=== PATIENT | male | born 1945 ===

== ENCOUNTER 2020-01-12 09:48 | Outpatient (REF) | payer MEDICARE, OTHER, SELFPAY ==
[2020-01-12 11:42] LABS: Hematocrit 43.4 % (42-52); Hemoglobin 14.3 g/dl (14.0-18.0)
[2020-01-12 11:58] LABS: Alanine Aminotransferase 14 U/L (0-40); Albumin Level 4.2 g/dL (3.5-5.0); Alkaline Phosphatase 62 U/L (39-117); Anion Gap 13 (12-20); Aspartate Amino Transferase 14 U/L (5-37); Bilirubin Total 0.4 mg/dL (0.0-1.0); Blood Urea Nitrogen 16 mg/dL (9-16); Calcium 8.7 mg/dL (8.4-10.2); Carbon Dioxide 27 mmol/L (22-29); Chloride 105 mmol/L (96-108); Estimated Glomerular Filt Rate > 60; Glucose Random 103 mg/dL (60-115); Potassium 4.5 mmol/l (3.3-5.1); Sodium 140 mmol/L (135-145); Total Protein 6.9 g/dL (6.5-8.0)
== END 2020-01-12 09:49 | disposition home or self-care (01) ==
LOC: HO.HMGCLDS 09:48
PROVIDERS: PCP Internal Medicine; Visit Provider Internal Medicine
DX: I10 Essential (primary) hypertension (principal); J44.9 Chronic obstructive pulmonary disease, unspecified
CPT/HCPCS: 36415; 80053; 85014; 85018

== ENCOUNTER 2020-12-23 14:27 | Outpatient (REF) | payer MEDICARE, OTHER, SELFPAY ==
[2020-12-23 16:24] LABS: MANUAL DIFF FLAG NO
[2020-12-23 16:35] LABS: Basophils Percent Auto 0.3 % (0-2); Eosinophils Absolute Auto 0.1 X10*3/uL (0.0-0.4); Eosinophils Percent Auto 1.1 % (0-4); Hematocrit 39.5 % (42-52); Imm Gran Abs Auto 0.02 X10*3/uL (0.00-0.03); Imm Gran Pct Auto 0.3 % (0.0-0.4); Lymphocytes Absolute Auto 1.8 X10*3/uL (1.2-4.9); Lymphocytes Percent Auto 25.2 % (20-40); Mean Corpuscular HGB Conc 32.9 g/dl (31.0-36.0); Mean Corpuscular Hemoglobin 30.4 pg (27.0-33.0); Mean Corpuscular Volume 92.5 fL (80-98); Mean Platelet Volume 10.4 fL (9.4-12.4); Monocytes Absolute Auto 0.5 X10*3/uL (0.1-1.2); Monocytes Percent Auto 6.8 % (2-11); Neutrophils Absolute Auto 4.7 X10*3/uL (2.0-8.3); Neutrophils Percent Auto 66.3 % (45-73); Platelet Count 243 X10*3/uL (160-400); Red Blood Count 4.27 X10*6/uL (4.60-5.80); Red Cell Distribution Width 12.3 % (11.0-16.0); White Blood Count 7.1 X10*3/uL (4.8-10.8)
[2020-12-23 16:50] LABS: Alanine Aminotransferase 13 U/L (0-40); Albumin Level 4.2 g/dL (3.5-5.0); Alkaline Phosphatase 59 U/L (39-117); Anion Gap 12 (12-20); Aspartate Amino Transferase 15 U/L (5-37); Bilirubin Total 0.3 mg/dL (0.0-1.0); Blood Urea Nitrogen 18 mg/dL (9-16); Calcium 8.8 mg/dL (8.4-10.2); Carbon Dioxide 25 mmol/L (22-29); Chloride 108 mmol/L (96-108); Estimated Glomerular Filt Rate > 60; Glucose Random 150 mg/dL (60-115); Sodium 141 mmol/L (135-145); Total Protein 6.8 g/dL (6.5-8.0)
== END 2020-12-23 14:28 | disposition home or self-care (01) ==
LOC: HO.HMGCLDS 14:27
PROVIDERS: PCP Internal Medicine; Visit Provider Internal Medicine
DX: I10 Essential (primary) hypertension (principal); J45.909 Unspecified asthma, uncomplicated
CPT/HCPCS: 36415; 80053; 85025

== ENCOUNTER 2021-07-29 10:23 | Outpatient (REF) | payer MEDICARE, OTHER, SELFPAY ==
[2021-07-29 14:26] LABS: Alanine Aminotransferase 18 U/L (0-40); Albumin Level 4.2 g/dL (3.5-5.0); Alkaline Phosphatase 65 U/L (39-117); Anion Gap 14 (12-20); Aspartate Amino Transferase 15 U/L (5-37); Bilirubin Total 0.2 mg/dL (0.0-1.0); Blood Urea Nitrogen 22 mg/dL (9-16); Calcium 9.6 mg/dL (8.4-10.2); Carbon Dioxide 27 mmol/L (22-29); Chloride 104 mmol/L (96-108); Estimated Glomerular Filt Rate > 60; Glucose Random 101 mg/dL (60-115); Potassium 4.7 mmol/L (3.3-5.1); Sodium 140 mmol/L (135-145); Total Protein 7.1 g/dL (6.5-8.0)
== END 2021-07-29 10:24 | disposition home or self-care (01) ==
LOC: HO.HMGCLDS 10:23
PROVIDERS: PCP Internal Medicine; Visit Provider Internal Medicine
DX: I10 Essential (primary) hypertension (principal)
CPT/HCPCS: 36415; 80053

== ENCOUNTER 2022-04-09 14:44 | Outpatient (REF) | payer MEDICARE, OTHER, SELFPAY ==
[2022-04-09 16:38] LABS: MANUAL DIFF FLAG NO
[2022-04-09 17:01] LABS: Basophils Percent Auto 0.3 % (0-2); Eosinophils Absolute Auto 0.2 X10*3/uL (0.0-0.4); Eosinophils Percent Auto 2.7 % (0-4); Hemoglobin 13.7 g/dl (14.0-18.0); Imm Gran Abs Auto 0.01 X10*3/uL (0.00-0.03); Imm Gran Pct Auto 0.1 % (0.0-0.4); Lymphocytes Absolute Auto 2.3 X10*3/uL (1.2-4.9); Lymphocytes Percent Auto 32.8 % (20-40); Mean Corpuscular HGB Conc 32.6 g/dl (31.0-36.0); Mean Corpuscular Hemoglobin 29.8 pg (27.0-33.0); Mean Corpuscular Volume 91.5 fL (80.0-98.0); Monocytes Absolute Auto 0.6 X10*3/uL (0.1-1.2); Neutrophils Absolute Auto 3.9 x10*3/uL (2.0-8.3); Neutrophils Percent Auto 56.1 % (45-73); Platelet Count 243 X10*3/uL (160-400); Red Blood Count 4.59 X10*6/uL (4.60-5.80); Red Cell Distribution Width 12.5 % (11.0-16.0)
[2022-04-09 17:13] LABS: Alanine Aminotransferase 13 U/L (0-40); Albumin Level 4.2 g/dL (3.5-5.0); Alkaline Phosphatase 69 U/L (39-117); Anion Gap 12 (12-20); Aspartate Amino Transferase 14 U/L (5-37); Bilirubin Total 0.3 mg/dL (0.0-1.0); Blood Urea Nitrogen 18 mg/dL (9-16); Calcium 9.4 mg/dL (8.4-10.2); Carbon Dioxide 29 mmol/L (22-29); Chloride 103 mmol/L (96-108); Cholesterol 171 mg/dL; Estimated Glomerular Filt Rate > 60; Glucose Fasting 107 mg/dL (60-99); Glucose Random 107 mg/dL (60-115); HDL Cholesterol 73 mg/dL; LDL Cholesterol Calculated 79 mg/dl; Potassium 4.2 mmol/L (3.3-5.1); Sodium 140 mmol/L (135-145); Triglycerides 95 mg/dL
== END 2022-04-09 14:45 | disposition home or self-care (01) ==
LOC: HO.HMGCLDS 14:44
PROVIDERS: Visit Provider Internal Medicine
DX: I10 Essential (primary) hypertension (principal); J45.40 Moderate persistent asthma, uncomplicated
CPT/HCPCS: 36415; 80053; 80061; 85025

== ENCOUNTER 2022-11-18 15:15 | Outpatient (AMB) | payer MEDICARE, OTHER, SELFPAY ==
--- NOTE | 2022-11-18 15:16 | A.OFFPC_ITS ---
Vital Signs 11/18/22 15:18 Height 5 ft 6 in Weight 152 lb BMI 24.5 BP 126/76 Blood Pressure Location Rt brachial Position Sitting Pulse 72 Pulse Source Pulse Oximeter Pulse Oximetry (%) 98 Oxygen Delivery Method Room Air Intake Visit Reasons: Follow up Allergies No Known Allergies Allergy (Verified 11/18/22 15:18) Medication List - Last Reconciled 11/18/22 by Arianna Post MD fluticasone propion-salmeterol 250-50 mcg/dose (Advair Diskus) 1 inh inhalation BID 90 days lisinopril 30 mg PO DAILY 90 days Tobacco use date assessed: 11/18/22 Fall risk assessment: No Falls in past year Last assessed Fall Risk: 11/18/22 HPI Follow up HPI Details Patient is 76-year-old male came in today for his follow-up appointment last time he was seen January of last year and then he did not come in for follow-up due to 1 reason or another. Patient continued to drink 4-5 beers every day and tells me that he has been drinking since he was 13 years old We talked about toxic effect of alcohol on the liver I would recommend for him to at least cut down. Due for labs order placed Last time he had labs his fasting sugar was slightly off and his hemoglobin was 13.7 He is complaining of easy bruising today. Hypertension:? Blood pressure is stable patient is taking lisinopril 30 mg daily .? Patient is tolerating medication. Asthma stable with Advair as a maintenance inhaler and albuterol only as needed. Follow-up 3 months [facility] Medical History Asthma Hypertension, essential Surgical History History of colonoscopy Family History Father HTN (hypertension) Cardiac disease Mother No problems noted. Brother No problems noted. Brother No problems noted. Brother No problems noted. Brother No problems noted. Sister No problems noted. Sister No problems noted. Sister No problems noted. Son No problems noted. Social History Housing: House Alcohol intake: current Alcohol intake frequency: 0-2 drinks per day Patient Tobacco Use Status: Never used Tobacco Tobacco use type: Cigarette e-Cigarette/Vaping Use: Never Used Current occupational status: retired Cognitive needs: No Hearing needs: No Vision needs: No Questionnaire PHQ-9 Over the last 2 weeks, how often have you been bothered by any of the following problems? 1. Little interest or pleasure in doing things: not at all 2. Feeling down, depressed, or hopeless: not at all 3. Trouble falling or staying asleep, or sleeping too much: not at all 4. Feeling tired or having little energy: not at all 5. Poor appetite or overeating: not at all 6. Feeling bad about yourself - or that you are a failure or have let yourself or your family down: not at all 7. Trouble concentrating on things, such as reading the newspaper or watching television: not at all 8. Moving or speaking so slowly that other people could have noticed. Or the opposite - being so fidgety or restless that you have been moving around a lot more than usual: not at all 9. Thoughts that you would be better off or of hurting yourself in some way: not at all Total score: 0 Depression Screening Interpretation: Negative 46202 - PHQ-9 Billing: Yes Source: Developed by Drs. Alonzo Cerna, Emerald German, Ayush Mathews and colleagues, with an educational linda from [employer]. AUDIT C Alcohol Use Questionnaire (AUDIT-C) 1. How often do you have a drink containing alcohol?: 4 or more times a week 2. How many drinks containing alcohol do you have on a typical day when you are drinking?: 3 or 4 3. How often do you have six or more drinks on one occasion?: Never Total Score: 5 Score Reviewed/Action Taken: No Review of Systems Const Denies chills and Denies fever(s) ENT Denies epistaxis and Denies nasal discharge Card Denies chest pain Resp Denies chest congestion, Denies cough and Denies hemoptysis GI Denies diarrhea and Denies nausea Skin/Breast Denies rash Neuro Reports no additional complaints Psych Reports no additional complaints Endo Reports no additional complaints Physical exam (Primary Care) Vital Signs: Last Vital Signs Pulse 72 11/18/22 15:18 BP 126/76 11/18/22 15:18 Pulse Ox 98 11/18/22 15:18 Oxygen Delivery Method Room Air 11/18/22 15:18 BMI result Body Mass Index 24.5 Tobacco/Smoking Status: Tobacco use Status Tobacco use date assessed 11/18/22 11/18/22 15:20 Patient Tobacco Use Status Never used Tobacco 11/18/22 15:17 Tobacco use type Cigarette 11/18/22 15:17 e-Cigarette/Vaping Use Never Used 11/18/22 15:17 Depression Screening Interpretation: Negative Const General: cooperative, comfortable and no acute distress Orientation/consciousness: patient oriented x3 HENMT Head: Yes normocephalic Eyes General: appearance normal, both eyes and all related structures Neck Neck: Yes supple Resp Effort & Inspection: normal respiratory effort, no cough and no stridor Cardio Rhythm: regular rhythm Heart sounds: S1 normal heart sound present and S2 normal heart sound present Skin Other: 2 in x 2 in ecchymotic patch right forearm external surface General skin exam: turgor normal Neuro General: patient oriented x3, tone normal and moves all extremities Extrem Right lower extremity: no edema Left lower extremity: no edema Assessment and Plan Assessment & Plan (1) Hypertension, essential: Code(s): I10 - Essential (primary) hypertension (2) Asthma, moderate persistent: Code(s): J45.40 - Moderate persistent asthma, uncomplicated (3) Impaired fasting blood sugar: Code(s): R73.01 - Impaired fasting glucose (4) Anemia: Code(s): D64.9 - Anemia, unspecified (5) Alcoholism: Comment: CONSEQUENCES OF DRINKING PROBLEMS There are a number of serious consequences of drinking alcohol excessively -------Excessive alcohol consumption is a leading preventable cause of in the [place]. --------Drinking alcohol increases the risk of traffic accidents, suicide, drowning, and other serious injuries. -------Alcohol use continues to be the leading cause of injuries treated in trauma centers and emergency departments . --------Alcohol-related liver disease may lead to end-stage liver disease (cirrhosis) and . --------Alcohol increases the risk of certain cancers of the mouth, esophagus, throat, liver, and breast. Code(s): F10.20 - Alcohol dependence, uncomplicated (6) Easy bruising: Code(s): R23.3 - Spontaneous ecchymoses (7) Ecchymosis of forearm: Code(s): R58 - Hemorrhage, not elsewhere classified Plan Patient is 76-year-old male came in today for his follow-up appointment last time he was seen January of last year and then he did not come in for follow-up due to 1 reason or another. Patient continued to drink 4-5 beers every day and tells me that he has been drinking since he was 13 years old We talked about toxic effect of alcohol on the liver I would recommend for him to at least cut down. Due for labs order placed Last time he had labs his fasting sugar was slightly off and his hemoglobin was 13.7 He is complaining of easy bruising today. Hypertension:? Blood pressure is stable patient is taking lisinopril 30 mg daily.? Patient is tolerating medication. Asthma stable with Advair as a maintenance inhaler and albuterol only as needed. Follow-up 3 months Orders: Orders Comprehensive [place]. Panel Fast Today D64.9 - Anemia, unspecified, I10 - Essential (primary) hypertension, J45.40 - Moderate persistent asthma, uncomplicated, R73.01 - Impaired fasting glucose Hemoglobin A1c Today D64.9 - Anemia, unspecified, I10 - Essential (primary) hypertension, J45.40 - Moderate persistent asthma, uncomplicated, R73.01 - Impaired fasting glucose Lipid Panel Today D64.9 - Anemia, unspecified, I10 - Essential (primary) hypertension, J45.40 - Moderate persistent asthma, uncomplicated, R73.01 - Impaired fasting glucose Complete Blood Count Auto Diff Today D64.9 - Anemia, unspecified, I10 - Essential (primary) hypertension, J45.40 - Moderate persistent asthma, uncomplicated, R73.01 - Impaired fasting glucose Medications: Refilled fluticasone propion-salmeterol 250-50 mcg/dose (Advair Diskus) 1 inh inhalation BID 3 multiple units 0RF 90 days lisinopril 30 mg PO DAILY 90 tabs 0RF 90 days albuterol sulfate 90 mcg/actuation (ProAir HFA) 2 puffs inhalation Q4-6H PRN 8.5 grams 5RF bronchospasm 30 days Coding Level of Care Code Est Pt Level 4 (18525) Diagnoses Hypertension, essential I10 Asthma, moderate persistent J45.40 Impaired fasting blood sugar R73.01 Anemia D64.9 Alcoholism F10.20 Easy bruising R23.3 Ecchymosis of forearm R58
[2022-11-18 15:18] VITALS: BP 126/76; PULSE 72; O2SAT 98; BMI 24.5
== END 2022-11-18 16:02 | disposition home or self-care (01) ==
PROVIDERS: PCP Internal Medicine; Visit Provider Internal Medicine
DX: I10 Essential (primary) hypertension (principal); J45.40 Moderate persistent asthma, uncomplicated; F10.20 Alcohol dependence, uncomplicated; R73.01 Impaired fasting glucose; D64.9 Anemia, unspecified; R23.3 Spontaneous ecchymoses; R58 Hemorrhage, not elsewhere classified
CPT/HCPCS: 99214

== ENCOUNTER 2022-11-19 06:19 | Outpatient (REF) | payer MEDICARE, OTHER, SELFPAY ==
[2022-11-19 11:40] LABS: MANUAL DIFF FLAG NO
[2022-11-19 11:50] LABS: Basophils Percent Auto 0.3 % (0-2); Eosinophils Absolute Auto 0.4 X10*3/uL (0.0-0.4); Eosinophils Percent Auto 6.4 % (0-4); Hematocrit 42.7 % (42.0-52.0); Hemoglobin 13.6 g/dl (14.0-18.0); Imm Gran Abs Auto 0.02 X10*3/uL (0.00-0.03); Imm Gran Pct Auto 0.3 % (0.0-0.4); Lymphocytes Absolute Auto 2.5 X10*3/uL (1.2-4.9); Lymphocytes Percent Auto 36.2 % (20-40); Mean Corpuscular HGB Conc 31.9 g/dl (31.0-36.0); Mean Corpuscular Hemoglobin 30.7 pg (27.0-33.0); Mean Corpuscular Volume 96.4 fL (80.0-98.0); Mean Platelet Volume 10.2 fL (9.4-12.4); Monocytes Absolute Auto 0.7 X10*3/uL (0.1-1.2); Monocytes Percent Auto 9.8 % (2-11); Neutrophils Absolute Auto 3.2 x10*3/uL (2.0-8.3); Platelet Count 220 X10*3/uL (160-400); Red Blood Count 4.43 X10*6/uL (4.60-5.80); White Blood Count 6.9 X10*3/uL (4.8-10.8)
[2022-11-19 12:03] LABS: Estimated Average Glucose 108 mg/dL; Hemoglobin A1c % 5.4 % (<6.0)
[2022-11-19 12:32] LABS: Alanine Aminotransferase 16 U/L (0-40); Albumin Level 4.1 g/dL (3.5-5.0); Alkaline Phosphatase 52 U/L (39-117); Anion Gap 11 (12-20); Aspartate Amino Transferase 18 U/L (5-37); Bilirubin Total 0.6 mg/dL (0.0-1.0); Blood Urea Nitrogen 21 mg/dL (9-16); Calcium 9.4 mg/dL (8.4-10.2); Carbon Dioxide 26 mmol/L (22-29); Chloride 106 mmol/L (96-108); Cholesterol 180 mg/dL (<200); Estimated Glomerular Filt Rate > 60; Glucose Fasting 109 mg/dL (60-99); HDL Cholesterol 83 mg/dL (>40); LDL Cholesterol Calculated 82 mg/dL (<100); Potassium 4.3 mmol/L (3.3-5.1); Sodium 139 mmol/L (135-145); Total Protein 7.1 g/dL (6.5-8.0); Triglycerides 76 mg/dL (<150)
== END 2022-11-19 06:20 | disposition home or self-care (01) ==
LOC: HO.HMGCLDS 06:19
PROVIDERS: PCP Internal Medicine; Visit Provider Internal Medicine
DX: I10 Essential (primary) hypertension (principal); J45.40 Moderate persistent asthma, uncomplicated; R73.01 Impaired fasting glucose; D64.9 Anemia, unspecified
CPT/HCPCS: 36415; 80053; 80061; 83036; 85025

== ENCOUNTER 2023-02-23 15:02 | Outpatient (AMB) | payer MEDICARE, OTHER, SELFPAY ==
[2023-02-23 15:09] VITALS: BP 126/72; PULSE 76; O2SAT 97; BMI 25.6
--- NOTE | 2023-02-23 15:09 | MHC.PC.OV ---
Vital Signs 02/23/23 15:09 Height 5 ft 6 in Weight 158 lb 6 oz BMI 25.6 BP 126/72 Blood Pressure Location Rt brachial Position Sitting Pulse 76 Pulse Source Pulse Oximeter Pulse Oximetry (%) 97 Oxygen Delivery Method Room Air Intake Visit Reasons: 3 month fu Allergies No Known Allergies Allergy (Verified 02/23/23 15:11) Medication List - Last Reconciled 02/23/23 by Arianna Post MD albuterol sulfate 90 mcg/actuation (ProAir HFA) 2 puffs inhalation Q4-6H PRN 30 days fluticasone propion-salmeterol 250-50 mcg/dose (Advair Diskus) 1 inh inhalation BID 90 days lisinopril 30 mg PO DAILY 90 days Tobacco use date assessed: 02/23/23 Fall risk assessment: No Falls in past year Last assessed Fall Risk: 02/23/23 Dental Screening Dental Screen Date: 02/23/23 Did you have a dental visit in the last 12 months?: No Did you have a dental problem in the last 6 months where you did not have access to dental care?: No Was dental information given to patient?: No HPI 3 month fu HPI Details Patient is 77-year-old male came in today for his follow-up appointment Complaining of mild constipation, however he drinks coffee in the morning which helps Labs were done October of this year, reviewed again Patient have impaired fasting sugar, we will continue to monitor Patient continued to drink 4-5 beers every day and tells me that he has been drinking since he was 13 years old We talked about toxic effect of alcohol on the liver I would recommend for him to at least cut down. Due for labs order placed , to be done before next visit in 3 months Hypertension:? Blood pressure is stable patient is taking lisinopril 30 mg daily.? Patient is tolerating medication. Asthma stable with Advair as a maintenance inhaler and albuterol only as needed. Follow-up 3 months [facility] Medical History Asthma Hypertension, essential Surgical History History of colonoscopy Family History Father HTN (hypertension) Cardiac disease Mother No problems noted. Brother No problems noted. Brother No problems noted. Brother No problems noted. Brother No problems noted. Sister No problems noted. Sister No problems noted. Sister No problems noted. Son No problems noted. Social History Housing: House Alcohol intake: current Alcohol intake frequency: 0-2 drinks per day Patient Tobacco Use Status: Never used Tobacco Tobacco use type: Cigarette e-Cigarette/Vaping Use: Never Used service: No Current occupational status: retired Cognitive needs: No Hearing needs: No Vision needs: No Questionnaire AUDIT C Alcohol Use Questionnaire (AUDIT-C) 1. How often do you have a drink containing alcohol?: 2-3 times a week 2. How many drinks containing alcohol do you have on a typical day when you are drinking?: 3 or 4 3. How often do you have six or more drinks on one occasion?: Never Total Score: 4 Score Reviewed/Action Taken: Yes Review of Systems Const Denies chills and Denies fever(s) ENT Denies epistaxis and Denies nasal discharge Card Denies chest pain Resp Denies chest congestion, Denies cough and Denies hemoptysis GI Denies diarrhea and Denies nausea Skin/Breast Denies rash Neuro Reports no additional complaints Psych Reports no additional complaints Endo Reports no additional complaints Physical exam (Primary Care) Vital Signs: Last Vital Signs Pulse 76 02/23/23 15:09 BP 126/72 02/23/23 15:09 Pulse Ox 97 02/23/23 15:09 Oxygen Delivery Method Room Air 02/23/23 15:09 BMI result Body Mass Index 25.6 Tobacco/Smoking Status: Tobacco use Status Tobacco use date assessed 02/23/23 02/23/23 15:11 Patient Tobacco Use Status Never used Tobacco 02/23/23 15:11 Tobacco use type Cigarette 02/23/23 15:11 e-Cigarette/Vaping Use Never Used 02/23/23 15:11 Const General: cooperative, comfortable and no acute distress Orientation/consciousness: patient oriented x3 HENMT Head: Yes normocephalic Eyes General: appearance normal, both eyes and all related structures Neck Neck: Yes supple Resp Effort & Inspection: normal respiratory effort, no cough and no stridor Cardio Rhythm: regular rhythm Heart sounds: S1 normal heart sound present and S2 normal heart sound present Skin General skin exam: turgor normal Neuro General: patient oriented x3, tone normal and moves all extremities Extrem Right lower extremity: no edema Left lower extremity: no edema Assessment and Plan Assessment & Plan (1) Hypertension, essential: Code(s): I10 - Essential (primary) hypertension (2) Asthma, moderate persistent: Code(s): J45.40 - Moderate persistent asthma, uncomplicated Qualifiers: Asthma complication type: uncomplicated Qualified Code(s): J45.40 - Moderate persistent asthma, uncomplicated (3) Possible alcohol use disorder on screening for alcoholism: Code(s): Z13.39 - Encounter for screening examination for other mental health and behavioral disorders (4) Impaired fasting blood sugar: Code(s): R73.01 - Impaired fasting glucose (5) Alcoholism: Comment: CONSEQUENCES OF DRINKING PROBLEMS There are a number of serious consequences of drinking alcohol excessively -------Excessive alcohol consumption is a leading preventable cause of in the [place]. --------Drinking alcohol increases the risk of traffic accidents, suicide, drowning, and other serious injuries. -------Alcohol use continues to be the leading cause of injuries treated in trauma centers and emergency departments . --------Alcohol-related liver disease may lead to end-stage liver disease (cirrhosis) and . --------Alcohol increases the risk of certain cancers of the mouth, esophagus, throat, liver, and breast. Code(s): F10.20 - Alcohol dependence, uncomplicated (6) Constipation by delayed colonic transit: Code(s): K59.01 - Slow transit constipation Plan Patient is 77-year-old male came in today for his follow-up appointment Complaining of mild constipation, however he drinks coffee in the morning which helps Labs were done October of this year, reviewed again Patient have impaired fasting sugar, we will continue to monitor Patient continued to drink 4-5 beers every day and tells me that he has been drinking since he was 13 years old We talked about toxic effect of alcohol on the liver I would recommend for him to at least cut down. Due for labs order placed , to be done before next visit in 3 months Hypertension:? Blood pressure is stable patient is taking lisinopril 30 mg daily.? Patient is tolerating medication. Asthma stable with Advair as a maintenance inhaler and albuterol only as needed. Follow-up 3 months Orders: Orders Hemoglobin A1c 3 Months F10.20 - Alcohol dependence, uncomplicated, I10 - Essential (primary) hypertension, J45.40 - Moderate persistent asthma, uncomplicated, R73.01 - Impaired fasting glucose, Z13.39 - Encounter for screening examination for other mental health and behavioral disorders Complete Blood Count Auto Diff 3 Months F10.20 - Alcohol dependence, uncomplicated, I10 - Essential (primary) hypertension, J45.40 - Moderate persistent asthma, uncomplicated, R73.01 - Impaired fasting glucose, Z13.39 - Encounter for screening examination for other mental health and behavioral disorders Comprehensive [place]. Panel Fast 3 Months F10.20 - Alcohol dependence, uncomplicated, I10 - Essential (primary) hypertension, J45.40 - Moderate persistent asthma, uncomplicated, R73.01 - Impaired fasting glucose, Z13.39 - Encounter for screening examination for other mental health and behavioral disorders Lipid Panel 3 Months F10.20 - Alcohol dependence, uncomplicated, I10 - Essential (primary) hypertension, J45.40 - Moderate persistent asthma, uncomplicated, R73.01 - Impaired fasting glucose, Z13.39 - Encounter for screening examination for other mental health and behavioral disorders Medications: Refilled fluticasone propion-salmeterol 250-50 mcg/dose (Advair Diskus) 1 inh inhalation BID 3 multiple units 0RF 90 days lisinopril 30 mg PO DAILY 90 tabs 0RF 90 days albuterol sulfate 90 mcg/actuation (ProAir HFA) 2 puffs inhalation Q4-6H PRN 8.5 grams 5RF bronchospasm 30 days Coding Level of Care Code Est Pt Level 4 (16778) Diagnoses Hypertension, essential I10 Moderate persistent asthma without complication J45.40 Asthma complication type: uncomplicated Possible alcohol use disorder on screening for alcoholism Z13.39 Impaired fasting blood sugar R73.01 Alcoholism F10.20 Constipation by delayed colonic transit K59.01
== END 2023-02-23 16:56 | disposition home or self-care (01) ==
PROVIDERS: PCP Internal Medicine; Visit Provider Internal Medicine
DX: I10 Essential (primary) hypertension (principal); J45.40 Moderate persistent asthma, uncomplicated; Z13.39 Encounter for screening examination for other mental health and behavioral disorders; F10.20 Alcohol dependence, uncomplicated; R73.01 Impaired fasting glucose; K59.01 Slow transit constipation
CPT/HCPCS: 99214

== ENCOUNTER 2023-05-21 06:03 | Outpatient (REF) | payer MEDICARE, OTHER, SELFPAY ==
[2023-05-21 11:19] LABS: MANUAL DIFF FLAG NO
[2023-05-21 11:29] LABS: Basophils Percent Auto 0.5 % (0-2); Eosinophils Absolute Auto 0.3 X10*3/uL (0.0-0.4); Eosinophils Percent Auto 4.3 % (0-4); Hemoglobin 13.8 g/dl (14.0-18.0); Imm Gran Abs Auto 0.01 X10*3/uL (0.00-0.03); Imm Gran Pct Auto 0.2 % (0.0-0.4); Lymphocytes Percent Auto 31.6 % (20-40); Mean Corpuscular HGB Conc 32.9 g/dl (31.0-36.0); Mean Corpuscular Hemoglobin 30.5 pg (27.0-33.0); Mean Corpuscular Volume 92.9 fL (80.0-98.0); Mean Platelet Volume 10.1 fL (9.4-12.4); Monocytes Absolute Auto 0.6 X10*3/uL (0.1-1.2); Monocytes Percent Auto 9.8 % (2-11); Neutrophils Absolute Auto 3.5 x10*3/uL (2.0-8.3); Neutrophils Percent Auto 53.6 % (45-73); Platelet Count 234 X10*3/uL (160-400); Red Blood Count 4.52 X10*6/uL (4.60-5.80); White Blood Count 6.5 X10*3/uL (4.8-10.8)
[2023-05-21 11:37] LABS: Estimated Average Glucose 114 mg/dL; Hemoglobin A1c % 5.6 % (<6.0)
[2023-05-21 11:43] LABS: Alanine Aminotransferase 16 U/L (0-40); Albumin Level 4.1 g/dL (3.5-5.0); Alkaline Phosphatase 58 U/L (39-117); Anion Gap 11 (12-20); Aspartate Amino Transferase 17 U/L (5-37); Bilirubin Total 0.4 mg/dL (0.0-1.0); Blood Urea Nitrogen 16 mg/dL (9-16); Calcium 9.2 mg/dL (8.4-10.2); Carbon Dioxide 28 mmol/L (22-29); Chloride 107 mmol/L (96-108); Cholesterol 186 mg/dL (<200); Estimated Glomerular Filt Rate > 60; Glucose Fasting 108 mg/dL (60-99); HDL Cholesterol 79 mg/dL (>40); LDL Cholesterol Calculated 87 mg/dL (<100); Potassium 4.4 mmol/L (3.3-5.1); Sodium 142 mmol/L (135-145); Total Protein 7.2 g/dL (6.5-8.0); Triglycerides 103 mg/dL (<150)
== END 2023-05-21 06:04 | disposition home or self-care (01) ==
LOC: HO.HMGCLDS 06:03
PROVIDERS: PCP Internal Medicine; Visit Provider Internal Medicine
DX: I10 Essential (primary) hypertension (principal); J45.40 Moderate persistent asthma, uncomplicated; R73.01 Impaired fasting glucose; F10.20 Alcohol dependence, uncomplicated; Z13.39 Encounter for screening examination for other mental health and behavioral disorders
CPT/HCPCS: 36415; 80053; 80061; 83036; 85025

== ENCOUNTER 2023-06-02 14:51 | Outpatient (AMB) | payer MEDICARE, OTHER, SELFPAY ==
--- NOTE | 2023-06-02 14:55 | MHC.PC.OV ---
Vital Signs 06/02/23 14:56 Height 5 ft 6 in Weight 150 lb 4 oz BMI 24.2 BP 128/68 Blood Pressure Location Rt brachial Position Sitting Pulse 84 Pulse Source Pulse Oximeter Pulse Oximetry (%) 98 Oxygen Delivery Method Room Air Intake Visit Reasons: 6 month fu Allergies No Known Allergies Allergy (Verified 06/02/23 14:56) Medication List - Last Reconciled 06/02/23 by Arianna Post MD albuterol sulfate 90 mcg/actuation (ProAir HFA) 2 puffs inhalation Q4-6H PRN 30 days fluticasone propion-salmeterol 250-50 mcg/dose (Advair Diskus) 1 inh inhalation BID 90 days lisinopril 30 mg PO DAILY 90 days Tobacco use date assessed: 06/02/23 Fall risk assessment: No Falls in past year Last assessed Fall Risk: 06/02/23 Dental Screening Dental Screen Date: 06/02/23 Did you have a dental visit in the last 12 months?: No Did you have a dental problem in the last 6 months where you did not have access to dental care?: No Was dental information given to patient?: No HPI 6 month fu HPI Details Patient is 77-year-old male came in today for his follow-up appointment Patient is in his usual state of health offer no new complaints Labs done this month reviewed with the patient Patient have impaired fasting sugar, we will continue to monitor Patient continued to drink 4-5 beers every day and tells me that he has been drinking since he was 13 years old Once again patient was advised to stop or at least cut down Hypertension:? Blood pressure is stable patient is taking lisinopril 30 mg daily.? Patient is tolerating medication. Asthma stable with Advair as a maintenance inhaler and albuterol only as needed. Constipation stable Patient is hard of hearing, however he is not interested in getting his hearing tested, tells me that hearing it is not affordable for him Follow-up 3 months [facility] Medical History Asthma Hypertension, essential Surgical History History of colonoscopy Family History Father HTN (hypertension) Cardiac disease Mother No problems noted. Brother No problems noted. Brother No problems noted. Brother No problems noted. Brother No problems noted. Sister No problems noted. Sister No problems noted. Sister No problems noted. Son No problems noted. Social History Housing: House Alcohol intake: current Alcohol intake frequency: 0-2 drinks per day Patient Tobacco Use Status: Never used Tobacco Tobacco use type: Cigarette e-Cigarette/Vaping Use: Never Used service: No Current occupational status: retired Cognitive needs: No Hearing needs: No Vision needs: No Questionnaire AUDIT C Alcohol Use Questionnaire (AUDIT-C) 1. How often do you have a drink containing alcohol?: 2-3 times a week 2. How many drinks containing alcohol do you have on a typical day when you are drinking?: 3 or 4 3. How often do you have six or more drinks on one occasion?: Never Total Score: 4 Score Reviewed/Action Taken: Yes Review of Systems Const Denies chills and Denies fever(s) ENT Denies epistaxis and Denies nasal discharge Card Denies chest pain Resp Denies chest congestion, Denies cough and Denies hemoptysis GI Denies diarrhea and Denies nausea Skin/Breast Denies rash Neuro Reports no additional complaints Psych Reports no additional complaints Endo Reports no additional complaints Physical exam (Primary Care) Vital Signs: Last Vital Signs Pulse 84 06/02/23 14:56 BP 128/68 06/02/23 14:56 Pulse Ox 98 06/02/23 14:56 Oxygen Delivery Method Room Air 06/02/23 14:56 BMI result Body Mass Index 24.2 Tobacco/Smoking Status: Tobacco use Status Tobacco use date assessed 06/02/23 06/02/23 14:58 Patient Tobacco Use Status Never used Tobacco 06/02/23 14:58 Tobacco use type Cigarette 06/02/23 14:58 e-Cigarette/Vaping Use Never Used 06/02/23 14:58 Const General: cooperative, comfortable and no acute distress Orientation/consciousness: patient oriented x3 HENMT Head: Yes normocephalic Eyes General: appearance normal, both eyes and all related structures Neck Neck: Yes supple Resp Effort & Inspection: normal respiratory effort, no cough and no stridor Cardio Rhythm: regular rhythm Heart sounds: S1 normal heart sound present and S2 normal heart sound present Skin General skin exam: turgor normal Neuro General: patient oriented x3, tone normal and moves all extremities Extrem Right lower extremity: no edema Left lower extremity: no edema Assessment and Plan Assessment & Plan (1) Hypertension, essential: Code(s): I10 - Essential (primary) hypertension (2) Asthma, moderate persistent: Code(s): J45.40 - Moderate persistent asthma, uncomplicated Qualifiers: Asthma complication type: uncomplicated Qualified Code(s): J45.40 - Moderate persistent asthma, uncomplicated (3) Impaired fasting blood sugar: Code(s): R73.01 - Impaired fasting glucose (4) Alcoholism: Comment: CONSEQUENCES OF DRINKING PROBLEMS There are a number of serious consequences of drinking alcohol excessively -------Excessive alcohol consumption is a leading preventable cause of in the [place]. --------Drinking alcohol increases the risk of traffic accidents, suicide, drowning, and other serious injuries. -------Alcohol use continues to be the leading cause of injuries treated in trauma centers and emergency departments . --------Alcohol-related liver disease may lead to end-stage liver disease (cirrhosis) and . --------Alcohol increases the risk of certain cancers of the mouth, esophagus, throat, liver, and breast. Code(s): F10.20 - Alcohol dependence, uncomplicated (5) Constipation by delayed colonic transit: Code(s): K59.01 - Slow transit constipation Plan Patient is 77-year-old male came in today for his follow-up appointment Complaining of mild constipation, however he drinks coffee in the morning which helps Labs were done October of this year, reviewed again Patient have impaired fasting sugar, we will continue to monitor Patient continued to drink 4-5 beers every day and tells me that he has been drinking since he was 13 years old We talked about toxic effect of alcohol on the liver I would recommend for him to at least cut down. Due for labs order placed , to be done before next visit in 3 months Hypertension:? Blood pressure is stable patient is taking lisinopril 30 mg daily.? Patient is tolerating medication. Asthma stable with Advair as a maintenance inhaler and albuterol only as needed. Follow-up 3 months Orders: Orders Comprehensive [place]. Panel 3 Months I10 - Essential (primary) hypertension Coding Level of Care Code Est Pt Level 3 (39742) Diagnoses Hypertension, essential I10 Moderate persistent asthma without complication J45.40 Asthma complication type: uncomplicated Impaired fasting blood sugar R73.01 Alcoholism F10.20 Constipation by delayed colonic transit K59.01
[2023-06-02 14:56] VITALS: BP 128/68; PULSE 84; O2SAT 98; BMI 24.2
== END 2023-06-02 15:59 | disposition home or self-care (01) ==
PROVIDERS: PCP Internal Medicine; Visit Provider Internal Medicine
DX: I10 Essential (primary) hypertension (principal); J45.40 Moderate persistent asthma, uncomplicated; R73.01 Impaired fasting glucose; F10.20 Alcohol dependence, uncomplicated; K59.01 Slow transit constipation
CPT/HCPCS: 99213

== ENCOUNTER 2023-08-25 11:16 | Outpatient (AMB) | payer MEDICARE, OTHER, SELFPAY ==
--- NOTE | 2023-08-25 11:46 | A.OFFPC_ITS ---
Intake Visit Reasons: 9 month fu~[phone] Allergies No Known Allergies Allergy (Verified 08/25/23 11:47) Medication List - Last Reconciled 08/25/23 by Arianna Post MD albuterol sulfate 90 mcg/actuation (ProAir HFA) 2 puffs inhalation Q4-6H PRN 30 days fluticasone propion-salmeterol 250-50 mcg/dose (Advair Diskus) 1 inh inhalation BID 90 days lisinopril 30 mg PO DAILY 90 days Tobacco use date assessed: 08/25/23 Fall risk assessment: No Falls in past year Last assessed Fall Risk: 08/25/23 Dental Screening Dental Screen Date: 08/25/23 Did you have a dental visit in the last 12 months?: No Did you have a dental problem in the last 6 months where you did not have access to dental care?: No Was dental information given to patient?: Patient has dentist HPI 9 month fu~[phone] HPI Details Patient is 77-year-old male this is telemed f.u apt offer no new c/o today Patient have impaired fasting sugar, we will continue to monitor Patient continued to drink 4-5 beers every day and tells me that he has been drinking since he was 13 years old We talked about toxic effect of alcohol on the liver I would recommend for him to at least cut down. Labs to be done before next visit in 3 months Hypertension:? Blood pressure is stable patient is taking lisinopril 30 mg daily.? Patient is tolerating medication. Asthma stable with Advair as a maintenance inhaler and albuterol only as needed. Follow-up 3 months [facility] Medical History Asthma Hypertension, essential Surgical History History of colonoscopy Family History Father HTN (hypertension) Cardiac disease Mother No problems noted. Brother No problems noted. Brother No problems noted. Brother No problems noted. Brother No problems noted. Sister No problems noted. Sister No problems noted. Sister No problems noted. Son No problems noted. Social History Housing: House Alcohol intake: current Alcohol intake frequency: 0-2 drinks per day Patient Tobacco Use Status: Never used Tobacco Tobacco use type: Cigarette e-Cigarette/Vaping Use: Never Used service: No Current occupational status: retired Cognitive needs: No Hearing needs: No Vision needs: No Review of Systems Const Denies chills and Denies fever(s) ENT Denies epistaxis and Denies nasal discharge Card Denies chest pain Resp Denies chest congestion, Denies cough and Denies hemoptysis GI Denies diarrhea and Denies nausea Skin/Breast Denies rash Neuro Reports no additional complaints Psych Reports no additional complaints Endo Reports no additional complaints Physical exam (Primary Care) Tobacco/Smoking Status: Tobacco use Status Tobacco use date assessed 08/25/23 08/25/23 11:48 Patient Tobacco Use Status Never used Tobacco 08/25/23 11:48 Tobacco use type Cigarette 08/25/23 11:48 e-Cigarette/Vaping Use Never Used 08/25/23 11:48 Telehealth Telehealth Telehealth Platform: [email or web address] Location of provider rendering services: practice address Location of patient: address on file Patient Identification confirmed using: Name, : Yes Telehealth method: voice only Patient verbally consented to treatment: Yes Patient verbally consented to billing insurance company: Yes Patient informed of any privacy concerns related to visit: Yes Minutes spent on Phone/Video with Pt.: 16 Assessment and Plan Assessment & Plan (1) Hypertension, essential: Code(s): I10 - Essential (primary) hypertension (2) Asthma, moderate persistent: Code(s): J45.40 - Moderate persistent asthma, uncomplicated Qualifiers: Asthma complication type: uncomplicated Qualified Code(s): J45.40 - Moderate persistent asthma, uncomplicated (3) Impaired fasting blood sugar: Code(s): R73.01 - Impaired fasting glucose (4) Alcoholism: Comment: CONSEQUENCES OF DRINKING PROBLEMS There are a number of serious consequences of drinking alcohol excessively -------Excessive alcohol consumption is a leading preventable cause of in the [place]. --------Drinking alcohol increases the risk of traffic accidents, suicide, drowning, and other serious injuries. -------Alcohol use continues to be the leading cause of injuries treated in trauma centers and emergency departments . --------Alcohol-related liver disease may lead to end-stage liver disease (cirrhosis) and . --------Alcohol increases the risk of certain cancers of the mouth, esophagus, throat, liver, and breast. Code(s): F10.20 - Alcohol dependence, uncomplicated (5) Constipation by delayed colonic transit: Code(s): K59.01 - Slow transit constipation Plan Patient is 77-year-old male this is telemed f.u apt offer no new c/o today Patient have impaired fasting sugar, we will continue to monitor Patient continued to drink 4-5 beers every day and tells me that he has been christiano hoffmann since he was 13 years old We talked about toxic effect of alcohol on the liver I would recommend for him to at least cut down. Labs to be done before next visit in 3 months Hypertension:? Blood pressure is stable patient is taking lisinopril 30 mg daily.? Patient is tolerating medication. Asthma stable with Advair as a maintenance inhaler and albuterol only as needed. Follow-up 3 months Orders: Orders Hemoglobin A1c Today F10.20 - Alcohol dependence, uncomplicated, I10 - Essential (primary) hypertension, J45.40 - Moderate persistent asthma, uncomplicated, K59.01 - Slow transit constipation, R73.01 - Impaired fasting glucose Complete Blood Count Auto Diff Today F10.20 - Alcohol dependence, uncomplicated, I10 - Essential (primary) hypertension, J45.40 - Moderate persistent asthma, uncomplicated, K59.01 - Slow transit constipation, R73.01 - Impaired fasting glucose Comprehensive [place]. Panel Fast Today F10.20 - Alcohol dependence, uncomplicated, I10 - Essential (primary) hypertension, J45.40 - Moderate persistent asthma, uncomplicated, K59.01 - Slow transit constipation, R73.01 - Impaired fasting glucose Lipid Panel Today F10.20 - Alcohol dependence, uncomplicated, I10 - Essential (primary) hypertension, J45.40 - Moderate persistent asthma, uncomplicated, K59.01 - Slow transit constipation, R73.01 - Impaired fasting glucose Coding Level of Care Code Tele Est Pt Level 3 (89850) Complex EM visit Add On G2211 Diagnoses Hypertension, essential I10 Moderate persistent asthma without complication J45.40 Asthma complication type: uncomplicated Impaired fasting blood sugar R73.01 Alcoholism F10.20 Constipation by delayed colonic transit K59.01
== END 2023-08-25 12:49 | disposition home or self-care (01) ==
PROVIDERS: PCP Internal Medicine; Visit Provider Internal Medicine
DX: I10 Essential (primary) hypertension (principal); F10.20 Alcohol dependence, uncomplicated; J45.40 Moderate persistent asthma, uncomplicated; R73.01 Impaired fasting glucose; K59.01 Slow transit constipation
CPT/HCPCS: 99442

== ENCOUNTER 2023-12-20 06:06 | Outpatient (REF) | payer MEDICARE, SELFPAY ==
[2023-12-20 10:13] LABS: MANUAL DIFF FLAG NO
[2023-12-20 10:29] LABS: Basophils Percent Auto 0.3 % (0-2); Eosinophils Absolute Auto 0.3 X10*3/uL (0.0-0.4); Eosinophils Percent Auto 3.6 % (0-4); Hematocrit 40.7 % (42.0-52.0); Hemoglobin 13.4 g/dl (14.0-18.0); Imm Gran Abs Auto 0.02 X10*3/uL (0.00-0.03); Imm Gran Pct Auto 0.3 % (0.0-0.4); Lymphocytes Absolute Auto 2.9 X10*3/uL (1.2-4.9); Lymphocytes Percent Auto 39.6 % (20-40); Mean Corpuscular HGB Conc 32.9 g/dl (31.0-36.0); Mean Corpuscular Hemoglobin 31.4 pg (27.0-33.0); Mean Corpuscular Volume 95.3 fL (80.0-98.0); Mean Platelet Volume 10.2 fL (9.4-12.4); Monocytes Absolute Auto 0.7 X10*3/uL (0.1-1.2); Monocytes Percent Auto 9.5 % (2-11); Neutrophils Absolute Auto 3.4 x10*3/uL (2.0-8.3); Neutrophils Percent Auto 46.7 % (45-73); Platelet Count 251 X10*3/uL (160-400); Red Blood Count 4.27 X10*6/uL (4.60-5.80); White Blood Count 7.2 X10*3/uL (4.8-10.8)
[2023-12-20 10:42] LABS: Alanine Aminotransferase 18 U/L (0-40); Albumin Level 4.2 g/dL (3.5-5.0); Alkaline Phosphatase 61 U/L (39-117); Anion Gap 14 (12-20); Aspartate Amino Transferase 15 U/L (5-37); Bilirubin Total 0.2 mg/dL (0.0-1.0); Blood Urea Nitrogen 21 mg/dL (9-16); Calcium 9.4 mg/dL (8.4-10.2); Carbon Dioxide 26 mmol/L (22-29); Chloride 107 mmol/L (96-108); Cholesterol 177 mg/dL (<200); Estimated Glomerular Filt Rate > 60; Glucose Fasting 111 mg/dL (60-99); Glucose Random 111 mg/dL (60-115); HDL Cholesterol 81 mg/dL (>40); LDL Cholesterol Calculated 82 mg/dL (<100); Potassium 4.5 mmol/L (3.3-5.1); Sodium 142 mmol/L (135-145); Total Protein 7.2 g/dL (6.5-8.0); Triglycerides 74 mg/dL (<150)
[2023-12-20 10:55] LABS: Estimated Average Glucose 114 mg/dL; Hemoglobin A1c % 5.6 % (<6.0)
== END 2023-12-20 06:07 | disposition home or self-care (01) ==
LOC: HO.HMGCLDS 06:06
PROVIDERS: PCP Internal Medicine; Visit Provider Internal Medicine
DX: I10 Essential (primary) hypertension (principal); J45.40 Moderate persistent asthma, uncomplicated; R73.01 Impaired fasting glucose; F10.20 Alcohol dependence, uncomplicated; K59.01 Slow transit constipation
CPT/HCPCS: 36415; 80053; 80061; 83036; 85025

== ENCOUNTER 2023-12-21 14:49 | Outpatient (AMB) | payer MEDICARE, OTHER, SELFPAY ==
[2023-12-21 14:54] VITALS: BP 122/60; PULSE 82; O2SAT 98; BMI 24.1
--- NOTE | 2023-12-21 14:54 | A.OFFPC_ITS ---
Vital Signs 12/21/23 14:54 Height 5 ft 6 in Weight 149 lb 2 oz BMI 24.1 BP 122/60 Blood Pressure Location Rt brachial Position Sitting Pulse 82 Pulse Source Pulse Oximeter Pulse Oximetry (%) 98 Oxygen Delivery Method Room Air Intake Visit Reasons: 4M f/u~ Allergies No Known Allergies Allergy (Verified 12/21/23 14:57) Medication List - Last Reconciled 12/21/23 by Arianna Post MD albuterol sulfate 90 mcg/actuation (ProAir HFA) 2 puffs inhalation Q4-6H PRN 30 days fluticasone propion-salmeterol 250-50 mcg/dose (Advair Diskus) 1 inh inhalation BID 90 days lisinopril 30 mg PO DAILY 90 days Tobacco use date assessed: 12/21/23 Fall risk assessment: No Falls in past year Last assessed Fall Risk: 12/21/23 Dental Screening Dental Screen Date: 12/21/23 Did you have a dental visit in the last 12 months?: No Did you have a dental problem in the last 6 months where you did not have access to dental care?: No Was dental information given to patient?: No HPI 4M f/u~ HPI Details Patient is 77-year-old male came in for his regular follow-up appointment offer no new c/o today Patient have impaired fasting sugar, we will continue to monitor, at his recent labs fasting sugar is 111 Patient continued to drink 4-5 beers every day and tells me that he has been drinking since he was 13 years old We talked about toxic effect of alcohol on the liver I would recommend for him to at least cut down. Hypertension:? Blood pressure is stable patient is taking lisinopril 30 mg daily.? Patient is tolerating medication. Asthma stable with Advair as a maintenance inhaler and albuterol only as needed. Follow-up 6 months Lab order placed to be done before next visit [facility] Medical History Asthma Hypertension, essential Surgical History History of colonoscopy Family History Father HTN (hypertension) Cardiac disease Mother No problems noted. Brother No problems noted. Brother No problems noted. Brother No problems noted. Brother No problems noted. Sister No problems noted. Sister No problems noted. Sister No problems noted. Son No problems noted. Social History Housing: House Alcohol intake: current Alcohol intake frequency: 0-2 drinks per day Patient Tobacco Use Status: Never used Tobacco Tobacco use type: Cigarette e-Cigarette/Vaping Use: Never Used service: No Current occupational status: retired Cognitive needs: No Hearing needs: No Vision needs: No Questionnaire PHQ-9 Over the last 2 weeks, how often have you been bothered by any of the following problems? 1. Little interest or pleasure in doing things: more than half the days 2. Feeling down, depressed, or hopeless: not at all 3. Trouble falling or staying asleep, or sleeping too much: not at all 4. Feeling tired or having little energy: not at all 5. Poor appetite or overeating: not at all 6. Feeling bad about yourself - or that you are a failure or have let yourself or your family down: not at all 7. Trouble concentrating on things, such as reading the newspaper or watching television: not at all 8. Moving or speaking so slowly that other people could have noticed. Or the opposite - being so fidgety or restless that you have been moving around a lot more than usual: not at all 9. Thoughts that you would be better off or of hurting yourself in some way: not at all Total score: 2 Depression Screening Interpretation: Negative Depression Screening Done: Yes 61946 - PHQ-9 Billing: Yes Source: Developed by Drs. Alonzo Cerna, Emerald German, Ayush Mathews and colleagues, with an educational linda from [employer]. Thrive Questionnaire Date Thrive assessed: 12/21/23 I am a: Patient What is your living situation today?: I choose not to answer this question Within the past 12 months, did the food you bought not last and you didn't have the money to get more?: Never true Within the past 12 months, did you worry whether your food would run out before you got money to buy more?: Never true Do you have trouble paying for medicines?: No Do you have trouble getting transportation to medical appointments?: No Do you have trouble paying your heating and electricity bill?: No Do you have trouble taking care of your child, family member or friend?: No Do you have trouble with day-to-day activities such as bathing, preparing meals, shopping, managing finances, etc.?: No Are you currently unemployed and looking for a job?: No Are you interested in more education?: No Please select the resources that you would like help with: None Currently or been in a relationship where the following occur: No concerns reported THRIVE Score: 0 AUDIT C Alcohol Use Questionnaire (AUDIT-C) 1. How often do you have a drink containing alcohol?: 2-3 times a week 2. How many drinks containing alcohol do you have on a typical day when you are drinking?: 3 or 4 3. How often do you have six or more drinks on one occasion?: Never Total Score: 4 Score Reviewed/Action Taken: Yes GILDA-7 AMB Questionnaire GILDA-7 Date GILDA - 7 assessed: 12/21/23 Feeling nervous, anxious, or on edge: 0 = Not at all Not being able to stop or control worryin = Not at all Worrying too much about different things: 0 = Not at all Trouble relaxin = Not at all Being so restless that it is hard to sit still: 0 = Not at all Becoming easily annoyed or irritable: 0 = Not at all Feeling afraid as if something awful might happen: 0 = Not at all Total GILDA-7 score (0-4 normal; 5-9 mild; 10-14 moderate; 15-21 severe): 0 Source: Developed by Drs. Alonzo Cerna, Emerald German, Ayush Mathews and colleagues, with an educational linda from [employer]. GILDA-7 Assessment Billing GILDA-7 Assessment Tool: GILDA-7 Assessment 79833 Review of Systems Const Denies chills and Denies fever(s) ENT Denies epistaxis and Denies nasal discharge Card Denies chest pain Resp Denies chest congestion, Denies cough and Denies hemoptysis GI Denies diarrhea and Denies nausea Skin/Breast Denies rash Neuro Reports no additional complaints Psych Reports no additional complaints Endo Reports no additional complaints Physical exam (Primary Care) Vital Signs: Last Vital Signs Pulse 82 12/21/23 14:54 BP 122/60 12/21/23 14:54 Pulse Ox 98 12/21/23 14:54 Oxygen Delivery Method Room Air 12/21/23 14:54 BMI result Body Mass Index 24.1 Tobacco/Smoking Status: Tobacco use Status Tobacco use date assessed 12/21/23 12/21/23 14:59 Patient Tobacco Use Status Never used Tobacco 12/21/23 14:59 Tobacco use type Cigarette 12/21/23 14:59 e-Cigarette/Vaping Use Never Used 12/21/23 14:59 PHQ-9: PHQ-9 Score PHQ-9: Total score 2 12/21/23 14:59 Depression Screening Interpretation: Negative Thrive Assessment: Date of Thrive Assessment Date Thrive assessed 12/21/23 12/21/23 14:59 Currently or been in a relationship where the following occur: No concerns reported Const General: cooperative, comfortable and no acute distress Orientation/consciousness: patient oriented x3 HENMT Head: Yes normocephalic Eyes General: appearance normal, both eyes and all related structures Neck Neck: Yes supple Resp Effort & Inspection: normal respiratory effort, no cough and no stridor Cardio Rhythm: regular rhythm Heart sounds: S1 normal heart sound present and S2 normal heart sound present Skin General skin exam: turgor normal Neuro General: patient oriented x3, tone normal and moves all extremities Extrem Right lower extremity: no edema Left lower extremity: no edema Coding Level of Care Code Est Pt Level 3 (10311) Diagnoses Hypertension, essential I10 Moderate persistent asthma without complication J45.40 Asthma complication type: uncomplicated Impaired fasting blood sugar R73.01 Additional Codes GILDA-7 Assessment Billing - GILDA-7 Assessment Tool: GILDA-7 Assessment 64604 ([id number]) Assessment & Plan Assessment & Plan (1) Hypertension, essential: Code(s): I10 - Essential (primary) hypertension Category: Medical (2) Asthma, moderate persistent: Code(s): J45.40 - Moderate persistent asthma, uncomplicated Category: Medical Qualifiers: Asthma complication type: uncomplicated Qualified Code(s): J45.40 - Moderate persistent asthma, uncomplicated (3) Impaired fasting blood sugar: Code(s): R73.01 - Impaired fasting glucose Category: Medical Plan Patient is 77-year-old male came in for his regular follow-up appointment offer no new c/o today Patient have impaired fasting sugar, we will continue to monitor, at his recent labs fasting sugar is 111 Patient continued to drink 4-5 beers every day and tells me that he has been drinking since he was 13 years old We talked about toxic effect of alcohol on the liver I would recommend for him to at least cut down. Hypertension:? Blood pressure is stable patient is taking lisinopril 30 mg da lizzie.? Patient is tolerating medication. Asthma stable with Advair as a maintenance inhaler and albuterol only as needed. Follow-up 6 months Lab order placed to be done before next visit Medications: Changed From albuterol sulfate 90 mcg/actuation (ProAir HFA) 2 puffs inhalation Q4-6H 30 days PRN 8.5 grams 5RF bronchospasm To albuterol sulfate 90 mcg/actuation 2 puffs inhalation Q4-6H 30 days PRN 8.5 grams 5RF bronchospasm Refilled fluticasone propion-salmeterol 250-50 mcg/dose (Advair Diskus) 1 inh inhalation BID 90 days 3 multiple units 1RF lisinopril 30 mg PO DAILY 90 days 90 tabs 1RF
== END 2023-12-21 15:03 | disposition home or self-care (01) ==
PROVIDERS: PCP Internal Medicine; Visit Provider Internal Medicine
DX: I10 Essential (primary) hypertension (principal); J45.40 Moderate persistent asthma, uncomplicated; R73.01 Impaired fasting glucose

== ENCOUNTER → 2023-12-21 14:49 | Outpatient (BNVA) | payer MEDICARE, OTHER, SELFPAY | PROVIDERS: PCP Internal Medicine; Visit Provider Internal Medicine | DX: I10 Essential (primary) hypertension (principal); J45.40 Moderate persistent asthma, uncomplicated; R73.01 Impaired fasting glucose | CPT/HCPCS: 96127; 99212 ==

== ENCOUNTER 2024-06-20 15:07 | Outpatient (AMB) | payer MEDICARE, OTHER, SELFPAY ==
--- NOTE | 2024-06-20 15:11 | MHC.PC.OV ---
Vital Signs 06/20/24 15:12 Height 5 ft 6 in Weight 150 lb BMI 24.2 BP 140/66 H Blood Pressure Location Rt brachial Position Sitting Respiration 18 Pulse 72 Pulse Source Pulse Oximeter Pulse Oximetry (%) 99 Oxygen Delivery Method Room Air Intake Visit Reasons: 6m follow up Allergies No Known Allergies Allergy (Verified 06/20/24 15:14) Medication List - Last Reconciled 06/20/24 by Arianna Post MD albuterol sulfate 90 mcg/actuation 2 puffs inhalation Q4-6H PRN 30 days fluticasone propion-salmeterol 250-50 mcg/dose (Advair Diskus) 1 inh inhalation BID 90 days lisinopril 30 mg PO DAILY 90 days Tobacco use date assessed: 06/20/24 Fall risk assessment: No Falls in past year Last assessed Fall Risk: 06/20/24 Dental Screening Dental Screen Date: 06/20/24 Did you have a dental visit in the last 12 months?: Yes Did you have a dental problem in the last 6 months where you did not have access to dental care?: No Was dental information given to patient?: Patient has dentist HPI 6m follow up HPI Details regular follow-up appointment - The patient is a 78-year-old male presenting for follow-up of prediabetes and laboratory evaluations. - Previous laboratory tests performed in November indicated prediabetes and slight anemia. - Liver enzymes and cholesterol levels from past evaluations were normal. - The patient experiences constipation and reports a history of hemorrhoids. - Essential Hypertension is noted, with a slightly elevated blood pressure of 140 mmHg. - Daily alcohol consumption is reported, with a typical intake of one or two beers. - asthma is stable patient is taking his regular maintenance Problem List - Prediabetes - Anemia - Constipation - Hemorrhoids - Essential Hypertension - Alcohol Use Disorder - asthma Patient Instructions - Schedule blood tests for tomorrow fasting before breakfast. - Avoid eating for at least 10 hours before the blood test. - Continue current medications including Advair and lisinopril. - Monitor and manage constipation and hemorrhoids at home. - Limit alcohol consumption and discuss further with healthcare provider. - Return for follow-up in four months. Review of Systems - General: No fever no chills - Neurological: No headaches no dizziness - Ear nose throat: No sore throat no hearing difficulty no ear pain - Cardiovascular: No syncope, no chest pain, no palpitations - Gastrointestinal: No nausea vomiting or diarrhea - Endocrine: No polyuria polydipsia no heat intolerance - Genitourinary: No dysuria , no blood in urine Physical Exam General: No acute distress HEENT: No acute findings Neck: Supple Respiratory system: Able to talk in full sentences, no audible wheeze Cardiovascular: S1-S2 regular in rate and rhythm, blood pressure slightly high at 140 Gastrointestinal: No pain, constipation, hemorrhoids Extremities: No new findings 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 Brother No problems noted. Brother No problems noted. Brother No problems noted. Brother No problems noted. Sister No problems noted. Sister No problems noted. Sister No problems noted. Son No problems noted. Social History Housing: House Alcohol intake: current Alcohol intake frequency: 0-2 drinks per day Patient Tobacco Use Status: Never used Tobacco Tobacco use type: Cigarette e-Cigarette/Vaping Use: Never Used service: No Current occupational status: retired Cognitive needs: No Hearing needs: No Vision needs: No Questionnaire PHQ-9 Over the last 2 weeks, how often have you been bothered by any of the following problems? 1. Little interest or pleasure in doing things: not at all 2. Feeling down, depressed, or hopeless: not at all 3. Trouble falling or staying asleep, or sleeping too much: not at all 4. Feeling tired or having little energy: not at all 5. Poor appetite or overeating: not at all 6. Feeling bad about yourself - or that you are a failure or have let yourself or your family down: not at all 7. Trouble concentrating on things, such as reading the newspaper or watching television: not at all 8. Moving or speaking so slowly that other people could have noticed. Or the opposite - being so fidgety or restless that you have been moving around a lot more than usual: not at all 9. Thoughts that you would be better off or of hurting yourself in some way: not at all Total score: 0 Depression Screening Interpretation: Negative Depression Screening Done: Yes 43581 - PHQ-9 Billing: Yes Source: Developed by Drs. Alonzo Cerna, Eemrald German, Ayush Mathews and colleagues, with an educational linda from [employer]. Thrive Questionnaire Date Thrive assessed: 06/20/24 I am a: Patient What is your living situation today?: I have a steady place to live Within the past 12 months, did the food you bought not last and you didn't have the money to get more?: Never true Within the past 12 months, did you worry whether your food would run out before you got money to buy more?: Never true Do you have trouble paying for medicines?: No Do you have trouble getting transportation to medical appointments?: No Do you have trouble paying your heating and electricity bill?: I choose not to answer this question Do you have trouble taking care of your child, family member or friend?: I choose not to answer this question Do you have trouble with day-to-day activities such as bathing, preparing meals, shopping, managing finances, etc.?: No Are you currently unemployed and looking for a job?: No Are you interested in more education?: I choose not to answer this question Please select the resources that you would like help with: Transportation Currently or been in a relationship where the following occur: No concerns reported THRIVE Score: 0 AUDIT C Alcohol Use Questionnaire (AUDIT-C) 1. How often do you have a drink containing alcohol?: 2-3 times a week 2. How many drinks containing alcohol do you have on a typical day when you are drinking?: 1 or 2 3. How often do you have six or more drinks on one occasion?: Never Total Score: 3 Score Reviewed/Action Taken: Yes GILDA-7 AMB Questionnaire GILDA-7 Date GILDA - 7 assessed: 06/20/24 Feeling nervous, anxious, or on edge: 0 = Not at all Not being able to stop or control worryin = Not at all Worrying too much about different things: 0 = Not at all Trouble relaxin = Not at all Being so restless that it is hard to sit still: 0 = Not at all Becoming easily annoyed or irritable: 0 = Not at all Feeling afraid as if something awful might happen: 0 = Not at all Total GILDA-7 score (0-4 normal; 5-9 mild; 10-14 moderate; 15-21 severe): 0 Source: Developed by Drs. Alonzo Cerna, Emerald German, Ayush Mathews and colleagues, with an educational linda from [employer]. GILDA-7 Assessment Billing GILDA-7 Assessment Tool: GILDA-7 Assessment 68927 Physical exam (Primary Care) Vital Signs: Last Vital Signs Pulse 72 06/20/24 15:12 Resp 18 06/20/24 15:12 BP 140/66 H 06/20/24 15:12 Pulse Ox 99 06/20/24 15:12 Oxygen Delivery Method Room Air 06/20/24 15:12 BMI result Body Mass Index 24.2 Tobacco/Smoking Status: Tobacco use Status Tobacco use date assessed 06/20/24 06/20/24 15:15 Patient Tobacco Use Status Never used Tobacco 06/20/24 15:15 Tobacco use type Cigarette 06/20/24 15:15 e-Cigarette/Vaping Use Never Used 06/20/24 15:15 PHQ-9: PHQ-9 Score PHQ-9: Total score 0 06/20/24 15:15 Depression Screening Interpretation: Negative Thrive Assessment: Date of Thrive Assessment Date Thrive assessed 06/20/24 06/20/24 15:15 Currently or been in a relationship where the following occur: No concerns reported Coding Level of Care Code Est Pt Level 4 (14895) Complex EM visit Add On G2211 Diagnoses Hypertension, essential I10 Moderate persistent asthma without complication J45.40 Asthma complication type: uncomplicated Impaired fasting blood sugar R73.01 Anemia in other chronic diseases classified elsewhere D63.8 Anemia type: other cause Other causes of anemia: chronic disease, other Alcoholism F10.20 Additional Codes GILDA-7 Assessment Billing - GIDLA-7 Assessment Tool: GILDA-7 Assessment 99777 ([id number]) PHQ-9 - 35906 - PHQ-9 Billing: Yes ([id number]) Assessment & Plan Assessment & Plan (1) Hypertension, essential: Code(s): I10 - Essential (primary) hypertension Category: Medical (2) Asthma, moderate persistent: Code(s): J45.40 - Moderate persistent asthma, uncomplicated Category: Medical Qualifiers: Asthma complication type: uncomplicated Qualified Code(s): J45.40 - Moderate persistent asthma, uncomplicated (3) Impaired fasting blood sugar: Code(s): R73.01 - Impaired fasting glucose Category: Medical (4) Anemia: Code(s): D64.9 - Anemia, unspecified Category: Medical Qualifiers: Anemia type: other cause Other causes of anemia: chronic disease, other Qualified Code(s): D63.8 - Anemia in other chronic diseases classified elsewhere (5) Alcoholism: Comment: CONSEQUENCES OF DRINKING PROBLEMS There are a number of serious consequences of drinking alcohol excessively -------Excessive alcohol consumption is a leading preventable cause of in the [place]. --------Drinking alcohol increases the risk of traffic accidents, suicide, drowning, and other serious injuries. -------Alcohol use continues to be the leading cause of injuries treated in trauma centers and emergency departments . --------Alcohol-related liver disease may lead to end-stage liver disease (cirrhosis) and . --------Alcohol increases the risk of certain cancers of the mouth, esophagus, throat, liver, and breast. Code(s): F10.20 - Alcohol dependence, uncomplicated Category: Medical Plan regular follow-up appointment - The patient is a 78-year-old male presenting for follow-up of prediabetes and laboratory evaluations. - Previous laboratory tests performed in November indicated prediabetes and slight anemia. - Liver enzymes and cholesterol levels from past evaluations were normal. - The patient experiences constipation and reports a history of hemorrhoids. - Essential Hypertension is noted, with a slightly elevated blood pressure of 140 mmHg. - Daily alcohol consumption is reported, with a typical intake of one or two beers. - asthma is stable patient is taking his regular maintenance Problem List - Prediabetes - Anemia - Constipation - Hemorrhoids - Essential Hypertension - Alcohol Use Disorder - asthma Patient Instructions - Schedule blood tests for tomorrow fasting before breakfast. - Avoid eating for at least 10 hours before the blood test. - Continue current medications including Advair and lisinopril. - Monitor and manage constipation and hemorrhoids at home. - Limit alcohol consumption and discuss further with healthcare provider. - Return for follow-up in four months. Orders: Orders Complete Blood Count Auto Diff Today D64.9 - Anemia, unspecified, F10.20 - Alcohol dependence, uncomplicated, I10 - Essential (primary) hypertension, J45.40 - Moderate persistent asthma, uncomplicated, R73.01 - Impaired fasting glucose Comprehensive [place]. Panel Fast Today D64.9 - Anemia, unspecified, F10.20 - Alcohol dependence, uncomplicated, I10 - Essential (primary) hypertension, J45.40 - Moderate persistent asthma, uncomplicated, R73.01 - Impaired fasting glucose Lipid Panel Today D64.9 - Anemia, unspecified, F10.20 - Alcohol dependence, uncomplicated, I10 - Essential (primary) hypertension, J45.40 - Moderate persistent asthma, uncomplicated, R73.01 - Impaired fasting glucose
[2024-06-20 15:12] VITALS: BP 140/66; PULSE 72; RESP 18; O2SAT 99; BMI 24.2
== END 2024-06-20 15:28 | disposition home or self-care (01) ==
LOC: HO.HMCC 15:10
PROVIDERS: PCP Internal Medicine; Visit Provider Internal Medicine
DX: I10 Essential (primary) hypertension (principal); J45.40 Moderate persistent asthma, uncomplicated; R73.01 Impaired fasting glucose; D63.8 Anemia in other chronic diseases classified elsewhere; F10.20 Alcohol dependence, uncomplicated

== ENCOUNTER → 2024-06-20 15:07 | Outpatient (BNVA) | payer MEDICARE, OTHER, SELFPAY | PROVIDERS: PCP Internal Medicine; Visit Provider Internal Medicine | DX: I10 Essential (primary) hypertension (principal); J45.40 Moderate persistent asthma, uncomplicated; R73.01 Impaired fasting glucose; D63.8 Anemia in other chronic diseases classified elsewhere; F10.20 Alcohol dependence, uncomplicated | CPT/HCPCS: 96127; 99212 ==

== ENCOUNTER 2024-06-22 06:19 | Outpatient (REF) | payer MEDICARE, SELFPAY ==
[2024-06-22 11:24] LABS: MANUAL DIFF FLAG NO
[2024-06-22 11:33] LABS: Basophils Percent Auto 0.3 % (0-2); Eosinophils Absolute Auto 0.3 X10*3/uL (0.0-0.4); Eosinophils Percent Auto 4.2 % (0-4); Hematocrit 41.7 % (42.0-52.0); Hemoglobin 13.4 g/dl (14.0-18.0); Imm Gran Abs Auto 0.01 X10*3/uL (0.00-0.03); Imm Gran Pct Auto 0.1 % (0.0-0.4); Lymphocytes Absolute Auto 2.5 X10*3/uL (1.2-4.9); Mean Corpuscular HGB Conc 32.1 g/dl (31.0-36.0); Mean Corpuscular Hemoglobin 30.3 pg (27.0-33.0); Mean Corpuscular Volume 94.3 fL (80.0-98.0); Mean Platelet Volume 10.4 fL (9.4-12.4); Monocytes Absolute Auto 0.6 X10*3/uL (0.1-1.2); Monocytes Percent Auto 8.3 % (2-11); Neutrophils Absolute Auto 3.4 x10*3/uL (2.0-8.3); Neutrophils Percent Auto 50.1 % (45-73); Platelet Count 252 X10*3/uL (160-400); Red Blood Count 4.42 X10*6/uL (4.60-5.80); Red Cell Distribution Width 13.4 % (11.0-16.0); White Blood Count 6.8 X10*3/uL (4.8-10.8)
[2024-06-22 12:19] LABS: Alanine Aminotransferase 15 U/L (0-40); Albumin Level 4.2 g/dL (3.5-5.0); Alkaline Phosphatase 62 U/L (39-117); Anion Gap 11 (12-20); Aspartate Amino Transferase 20 U/L (5-37); Bilirubin Total 0.6 mg/dL (0.0-1.0); Blood Urea Nitrogen 16 mg/dL (9-16); Calcium 9.5 mg/dL (8.4-10.2); Carbon Dioxide 28 mmol/L (22-29); Chloride 107 mmol/L (96-108); Cholesterol 177 mg/dL (<200); Estimated Glomerular Filt Rate > 60; Glucose Fasting 109 mg/dL (60-99); HDL Cholesterol 79 mg/dL (>40); LDL Cholesterol Calculated 82 mg/dL (<100); Potassium 4.4 mmol/L (3.3-5.1); Sodium 142 mmol/L (135-145); Total Protein 7.1 g/dL (6.5-8.0); Triglycerides 80 mg/dL (<150)
== END 2024-06-22 06:20 | disposition home or self-care (01) ==
LOC: HO.HMGCLDS 06:19
PROVIDERS: PCP Internal Medicine; Visit Provider Internal Medicine
DX: I10 Essential (primary) hypertension (principal); J45.40 Moderate persistent asthma, uncomplicated; R73.01 Impaired fasting glucose; D64.9 Anemia, unspecified; F10.20 Alcohol dependence, uncomplicated
CPT/HCPCS: 36415; 80053; 80061; 85025

== ENCOUNTER 2024-12-15 15:05 | Outpatient (AMB) | payer MEDICARE, SELFPAY ==
[2024-12-15 15:07] VITALS: BP 120/64; PULSE 86; O2SAT 98; BMI 23.9
--- NOTE | 2024-12-15 15:07 | A.OFFPC_ITS ---
Vital Signs 12/15/24 15:07 Height 5 ft 6 in Weight 148 lb BMI 23.9 BP 120/64 Blood Pressure Location Lt brachial Position Sitting Pulse 86 Pulse Source Pulse Oximeter Pulse Oximetry (%) 98 Intake Visit Reasons: 4m follow up Allergies No Known Allergies Allergy (Verified 12/15/24 15:07) Medication List - Last Reconciled 12/15/24 by Arianna Post MD albuterol sulfate 90 mcg/actuation 2 puffs inhalation Q4-6H PRN 30 days fluticasone propion-salmeterol 250-50 mcg/dose (Advair Diskus) 1 inh inhalation BID 90 days lisinopril 30 mg PO DAILY 90 days Tobacco use date assessed: 06/20/24 Fall risk assessment: No Falls in past year Last assessed Fall Risk: 12/15/24 Dental Screening Dental Screen Date: 06/20/24 HPI 4m follow up HPI Details regular longitudinal visit Medical History - Hypertension, managed with Lisinopril - asthma moderate persistent using Advai r and albuterol as needed - Social history includes current smokin g and occasional alcohol consumption on weekends Problem List - Essential Hypertension - Smoking - asthma - alcohol use Plan 1. Essential Hypertension - The patient's blood pressure is curren peñay stable at 120/64 mmHg. - Continue with Lisinopril as previously prescribed. - Educated the patient about maintaining adherence to the medication regimen. - Discussed the importance of monitoring and recording blood pressure regularly. - Scheduled the next blood test on a for oming weekday morning, with instructions to fast for 10 hours prior. 2. Smoking - Expressed concerns about the health ri sks associated with continued smoking. - Encouraged the [facility] and support. 3- asthma Continue Advair and albuterol inhaler as needed Patient Instructions - Continue taking Lisinopril as prescrib ed. - Monitor and record your blood pressure regularly. - Avoid eating 10 hours before your bloo d test, which will take place on a morning. - Try to reduce smoking and consider see [place] help if you want to quit. - Limit alcohol consumption to weekends as minimally as possible. - continue asthma inhalers Follow-up early May Review of Systems - General: No fever no chills - Neurological: No headaches no dizziness - Ear nose throat: No sore throat no hearing difficulty no ear pain - Cardiovascular: No syncope, no chest pain, no palpitations - Gastrointestinal: No nausea vomiting or diarrhea - Endocrine: No polyuria polydipsia no heat intolerance - Genitourinary: No dysuria , no blood in urine Physical Exam - General: No acute distress - HEENT: No acute findings - Neck: Supple - Respiratory system: Able to talk in f ull sentences, no audible wheeze - Cardiovascular: S1-S2 regular in rate and rhythm - Gastrointestinal: No pain - Extremities: No new findings - 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 Brother No problems noted. Brother No problems noted. Brother No problems noted. Brother No problems noted. Sister No problems noted. Sister No problems noted. Sister No problems noted. Son No problems noted. Social History Housing: House Alcohol intake: current Alcohol intake frequency: 0-2 drinks per day Patient Tobacco Use Status: Never used Tobacco Tobacco use type: Cigarette e-Cigarette/Vaping Use: Never Used service: No Current occupational status: retired Cognitive needs: No Hearing needs: No Vision needs: No Questionnaire Thrive Questionnaire Date Thrive assessed: 06/20/24 I am a: Patient What is your living situation today?: I have a steady place to live Within the past 12 months, did the food you bought not last and you didn't have the money to get more?: Never true Within the past 12 months, did you worry whether your food would run out before you got money to buy more?: Never true Do you have trouble paying for medicines?: No Do you have trouble getting transportation to medical appointments?: No Do you have trouble paying your heating and electricity bill?: I choose not to answer this question Do you have trouble taking care of your child, family member or friend?: I choose not to answer this question Do you have trouble with day-to-day activities such as bathing, preparing meals, shopping, managing finances, etc.?: No Are you currently unemployed and looking for a job?: No Are you interested in more education?: I choose not to answer this question Please select the resources that you would like help with: Transportation Currently or been in a relationship where the following occur: No concerns reported THRIVE Score: 0 GILDA-7 AMB Questionnaire GILDA-7 Date GILDA - 7 assessed: 06/20/24 Not being able to stop or control worryin = Not at all Worrying too much about different things: 0 = Not at all Trouble relaxin = Not at all Being so restless that it is hard to sit still: 0 = Not at all Becoming easily annoyed or irritable: 0 = Not at all Feeling afraid as if something awful might happen: 0 = Not at all Source: Developed by Drs. Alonzo Cerna, Emerald German, Ayush Mathews and colleagues, with an educational linda from [employer]. Physical exam (Primary Care) Vital Signs: Last Vital Signs Pulse 86 12/15/24 15:07 BP 120/64 12/15/24 15:07 Pulse Ox 98 12/15/24 15:07 BMI result Body Mass Index 23.9 Tobacco/Smoking Status: Tobacco use Status Tobacco use date assessed 06/20/24 12/15/24 15:08 Patient Tobacco Use Status Never used Tobacco 12/15/24 15:08 Tobacco use type Cigarette 12/15/24 15:08 e-Cigarette/Vaping Use Never Used 12/15/24 15:08 Are you ready to quit: No Tobacco cessation counseling provided: Yes Relapse Prevention: discussed the importance of a supportive environment and dis cussed dietary, exercise and/or lifestyle changes CPT code: 31702 - 4-10 Minutes Thrive Assessment: Date of Thrive Assessment Date Thrive assessed 06/20/24 12/15/24 15:08 Currently or been in a relationship where the following occur: No concerns reported Coding Level of Care Code Est Pt Level 4 (65666) Complex EM visit Add On G2211 Diagnoses Hypertension, essential I10 Impaired fasting blood sugar R73.01 Moderate persistent asthma without complication J45.40 Asthma complication type: uncomplicated Tobacco dependence F17.200 Additional Codes Vital Signs *Quality* - CPT code: 74092 - 4-10 Minutes ([id number]) Assessment & Plan Assessment & Plan (1) Hypertension, essential: Code(s): I10 - Essential (primary) hypertension Category: Medical (2) Impaired fasting blood sugar: Code(s): R73.01 - Impaired fasting glucose Category: Medical (3) Asthma, moderate persistent: Code(s): J45.40 - Moderate persistent asthma, uncomplicated Category: Medical Qualifiers: Asthma complication type: uncomplicated Qualified Code(s): J45.40 - Moderate persistent asthma, uncomplicated (4) Tobacco dependence: Code(s): F17.200 - Nicotine dependence, unspecified, uncomplicated Category: Medical Plan regular longitudinal visit Medical History - Hypertension, managed with Lisinopril - asthma moderate persistent using Advair and albuterol as needed - Social history includes current smoking and occasional alcohol consumption on weekends Problem List - Essential Hypertension - Smoking - asthma - alcohol use Plan 1. Essential Hypertension - The patient's blood pressure is currently stable at 120/64 mmHg. - Continue with Lisinopril as previously prescribed. - Educated the patient about maintaining adherence to the medication regimen. - Discussed the importance of monitoring and recording blood pressure regularly. - Scheduled the next blood test on a forthcoming weekday morning, with instructions to fast for 10 hours prior. 2. Smoking - Expressed concerns about the health risks associated with continued smoking. - Encouraged the patient to consider smoking cessation options and support. 3- asthma Continue Advair and albuterol inhaler as needed 4- impaired fasting sugar controlled diet Patient Instructions - Continue taking Lisinopril as prescribed. - Monitor and record your blood pressure regularly. - Avoid eating 10 hours before your blood test, which will take place on a weekday morning. - Try to reduce smoking and consider seeking help if you want to quit. - Limit alcohol consumption to weekends as minimally as possible. - continue asthma inhalers Follow-up early May Orders: Orders Complete Blood Count Auto Diff Today F17.200 - Nicotine dependence, unspecified, uncomplicated, I10 - Essential (primary) hypertension, J45.40 - Moderate persistent asthma, uncomplicated, R73.01 - Impaired fasting glucose Comprehensive [place]. Panel Fast Today F17.200 - Nicotine dependence, unspecifie d, uncomplicated, I10 - Essential (primary) hypertension, J45.40 - Moderate persistent asthma, uncomplicated, R73.01 - Impaired fasting glucose Lipid Panel Today F17.200 - Nicotine dependence, unspecified, uncomplicated, I10 - Essential (primary) hypertension, J45.40 - Moderate persistent asthma, uncomplicated, R73.01 - Impaired fasting glucose Hemoglobin A1c Today R73.01 - Impaired fasting glucose
== END 2024-12-15 15:28 | disposition home or self-care (01) ==
LOC: HO.HMCC 15:06
PROVIDERS: PCP Internal Medicine; Visit Provider Internal Medicine
DX: I10 Essential (primary) hypertension (principal); R73.01 Impaired fasting glucose; J45.40 Moderate persistent asthma, uncomplicated; F17.200 Nicotine dependence, unspecified, uncomplicated

== ENCOUNTER → 2024-12-15 15:05 | Outpatient (BNVA) | payer MEDICARE, SELFPAY | PROVIDERS: PCP Internal Medicine; Visit Provider Internal Medicine | DX: I10 Essential (primary) hypertension (principal); R73.01 Impaired fasting glucose; J45.909 Unspecified asthma, uncomplicated; J45.40 Moderate persistent asthma, uncomplicated; F17.210 Nicotine dependence, cigarettes, uncomplicated | CPT/HCPCS: 99212 ==

== ENCOUNTER 2024-12-16 06:31 | Outpatient (REF) | payer MEDICARE, SELFPAY ==
[2024-12-16 11:10] LABS: MANUAL DIFF FLAG NO
[2024-12-16 11:13] LABS: Hematocrit 38.5 % (42.0-52.0); Hemoglobin 12.8 g/dl (14.0-18.0); Imm Gran Abs Auto 0.02 X10*3/uL (0.00-0.03); Imm Gran Pct Auto 0.3 % (0.0-0.4); Lymphocytes Absolute Auto 2.7 X10*3/uL (1.2-4.9); Mean Corpuscular HGB Conc 33.2 g/dl (31.0-36.0); Mean Corpuscular Hemoglobin 30.9 pg (27.0-33.0); Mean Corpuscular Volume 93.0 fL (80.0-98.0); NRBC Abs Auto 0.000 X10*3/uL (0.0-0.012); NRBC Pct Auto 0.0 /100WBC (0.0-0.2); Platelet Count 241 X10*3/uL (160-400); Red Blood Count 4.14 X10*6/uL (4.60-5.80); White Blood Count 7.0 X10*3/uL (4.8-10.8)
[2024-12-16 11:29] LABS: Alanine Aminotransferase 18 U/L (0-40); Albumin Level 4.2 g/dL (3.5-5.0); Alkaline Phosphatase 61 U/L (39-117); Anion Gap 11 (12-20); Aspartate Amino Transferase 21 U/L (5-37); Blood Urea Nitrogen 25 mg/dL (9-16); Calcium 8.9 mg/dL (8.4-10.2); Carbon Dioxide 26 mmol/L (22-29); Chloride 107 mmol/L (96-108); Cholesterol 176 mg/dL (<200); Estimated Glomerular Filt Rate 58; HDL Cholesterol 69 mg/dL (>40); Potassium 4.6 mmol/L (3.3-5.1); Sodium 139 mmol/L (135-145); Total Protein 6.9 g/dL (6.5-8.0); Triglycerides 100 mg/dL (<150)
== END 2024-12-16 06:32 | disposition home or self-care (01) ==
LOC: HO.HMGCLDS 06:31
PROVIDERS: PCP Internal Medicine; Visit Provider Internal Medicine
DX: I10 Essential (primary) hypertension (principal); R73.01 Impaired fasting glucose; J45.40 Moderate persistent asthma, uncomplicated; F17.200 Nicotine dependence, unspecified, uncomplicated
CPT/HCPCS: 36415; 80053; 80061; 83036; 85025